=== PATIENT | male | born 1975 | race Caucasian/White ===

== ENCOUNTER 2016-02-14 23:45 | Emergency (ER) | payer MEDICARE ==
[2016-02-15] MEDS ORDERED: SODIUM CHLORIDE 0.9% 1,000 ML ONE (00:42)
== END 2016-02-15 04:38 | disposition home or self-care (01) ==
LOC: ER 23:45
CPT/HCPCS: 36415 ×2; 71010 ×2; 80053 ×2; 81001 ×2; 85025 ×2; 93005 ×2; 96360 ×2; 96361 ×2; 99285; G0479; G0480